=== PATIENT | male | born 1970 | race Two or more races ===

== ENCOUNTER 2024-03-28 10:12 | Emergency (ER) | payer BC, OTHER ==
[2024-03-28 10:31] VITALS: BP 129/87; PULSE 86; RESP 17; TEMP 97.9; BMI 28.5
[2024-03-28 11:50] LABS: THROAT:GRP A STREP NOT DETECTED (NOTDETECTED)
== END 2024-03-28 11:48 | disposition home or self-care (01) ==
LOC: JER 10:12
DX: J45.21 Mild intermittent asthma with (acute) exacerbation (principal); J02.9 Acute pharyngitis, unspecified; R05.9 Cough, unspecified; Z20.822 Contact with and (suspected) exposure to COVID-19
CPT/HCPCS: 0241U-QW; 71045-TC-FY; 87651; 93005; 93010; 99285-25